=== PATIENT | female | born 1945 | race Caucasian/White ===

== ENCOUNTER → 2016-08-09 | Outpatient (CLI) | payer MEDICARE ==
--- NOTE | ~2016-08-09 | CR150 ---
[facility] A Service of [facility] RADIOLOGY TEXT RESULTS PATIENT: CAROLINE PURI LOCATION: [facility] : 49 UNIT #: [id number] AGE: [address]: SHANTAL BERNSTEIN MD SEX: F ORDER DR: [id number] [facility] [address] [place], [place] [address] [id number] O MR#: [id number] Acc #: [id number] NAME: CAROLINE PURI : 1945 SEX: F STUDY DATE/TIME: 08/09/2016 15:03 UNIT: [facility] ROOM: STUDY DESCRIPTION: CR Hip Min 2 Views Lt Attending Physician: Shantal Bernstein M.D. Referring Physician: Shantal Bernstein M.D. Ordering Physician: Shantal Bernstein M.D. Primary Care Physician: Shantal Bernstein M.D. MEDICAL IMAGING REPORT This report is preliminary unless electronic signature is present EXAM Left hip HISTORY Bilateral hip pain chronic. FINDINGS 2 views of the left hip were obtained. Bony elements are intact. Joint space and articular surfaces are preserved. No fractures are seen. CONCLUSION Negative. Dictated by... Justyn Gallegos M.D. THIS IS AN ELECTRONICALLY VERIFIED REPORT Justyn Gallegos M.D. at 08/12/2016 5:09 PM MATEO/rafael TD: 08/10/2016 11:07 JOB #: [id number] MEDICAL IMAGING REPORT COPY
--- NOTE | ~2016-08-09 | CR151 ---
[facility] A Service of [facility] & [facility] RADIOLOGY TEXT RESULTS PATIENT: CAROLINE PURI LOCATION: [facility] : 49 UNIT #: [id number] AGE: [address]: SHANTAL BERNSTEIN MD SEX: F ORDER DR: [id number] [facility] [address] [place], [place] [address] [id number] O MR#: [id number] Acc #: [id number] NAME: CAROLINE PURI : 1945 SEX: F STUDY DATE/TIME: 08/09/2016 15:03 UNIT: [facility] ROOM: STUDY DESCRIPTION: CR Hip Min 2 Views Rt Attending Physician: Shantal Bernstein M.D. Referring Physician: Shantal Bernstein M.D. Ordering Physician: Shantal Bernstein M.D. Primary Care Physician: Shantal Bernstein M.D. MEDICAL IMAGING REPORT This report is preliminary unless electronic signature is present EXAM AP pelvis and right hip HISTORY Bilateral hip pain, right more than left. Chronic. Worse over the last 2 months. FINDINGS AP view of the pelvis and oblique view of the right hip are submitted. There is advanced osteoarthritis in the right hip with marked joint space narrowing, extensive subchondral cyst formation and evidence of reactive bony sclerosis in the right femoral head. Left hip on the other hand appears relatively normal. CONCLUSION Advanced osteoarthritis right hip. Dictated by... Justyn Gallegos M.D. THIS IS AN ELECTRONICALLY VERIFIED REPORT Justyn Gallegos M.D. at 08/12/2016 5:09 PM MATEO/rafael TD: 08/10/2016 10:39 JOB #: [id number] MEDICAL IMAGING REPORT COPY
== END | disposition home or self-care (01) ==
LOC: CRAD 14:51
DX: M25.511 Pain in right shoulder (principal); M25.512 Pain in left shoulder; M16.11 Unilateral primary osteoarthritis, right hip
CPT/HCPCS: 73502